=== PATIENT | female | born 1980 ===

== ENCOUNTER → 2018-10-30 18:16 | Outpatient (CLI) | payer SELFPAY ==
[2018-11-01 10:23] LABS: HEP B CORE AB TOTAL Negative (Negative); HEPATITIS C ANTIBODY 0.3 S/CO RAT (0.0-0.9)
== END | disposition home or self-care (01) ==
LOC: D.LABREF 18:16
PROVIDERS: Emergency Medicine
DX: Z11.4 Encounter for screening for human immunodeficiency virus [HIV] (principal)